=== PATIENT | male | born 1990 | race Caucasian/White ===

== ENCOUNTER 2019-07-04 20:56 | Emergency (ER) | payer MEDICAID ==
[~2019-07-04] VITALS: Ht 188 cm; Wt 95.4 kg
[2019-07-04 21:03] VITALS: BP 132/84
[2019-07-04] MEDS ORDERED: HYDROcodone/APAP 5/325 TABLET ONE (21:23)
[2019-07-04] MEDS ORDERED: HYDROcodone/APAP 5/325 TABLET PO ONE (21:30)
== END 2019-07-04 23:07 | disposition home or self-care (01) ==
LOC: ED 22:51
DX: S80.01XA Contusion of right knee, initial encounter (principal); M25.461 Effusion, right knee; F17.200 Nicotine dependence, unspecified, uncomplicated; W19.XXXA Unspecified fall, initial encounter; Y93.89 Activity, other specified; Y92.488 Other paved roadways as the place of occurrence of the external cause; Y99.8 Other external cause status
CPT/HCPCS: 29505; 99283

== ENCOUNTER 2019-11-11 18:31 | Emergency (ER) | payer MEDICAID ==
[~2019-11-11] VITALS: Ht 188 cm; Wt 95.0 kg
[2019-11-11] MEDS ORDERED: BACITRACIN OINT 500U/GM, 15 GM TP PRN (20:30)
[2019-11-11] MEDS ORDERED: CLINDAMYCIN 150 MG/ML, 6ML IM ONE (20:30)
[2019-11-11] MEDS ORDERED: CLINDAMYCIN 150 MG/ML, 6ML ONE (20:42)
[2019-11-11] MEDS ORDERED: NEOSPORIN OINT. PKT 1 PACKET ONE (21:00)
--- NOTE | 2019-11-11 21:21 | NUR ---
[address] YODER
[2019-11-11 21:39] VITALS: BP 144/91
== END 2019-11-11 21:42 | disposition home or self-care (01) ==
LOC: ED 21:15
DX: S01.81XD Laceration without foreign body of other part of head, subsequent encounter (principal); G89.11 Acute pain due to trauma; F17.200 Nicotine dependence, unspecified, uncomplicated; X58.XXXD Exposure to other specified factors, subsequent encounter
CPT/HCPCS: 71045; 73030; 73110; 96372; 99284; S0077

== ENCOUNTER 2019-12-24 03:25 | Emergency (ER) | payer MEDICAID ==
[~2019-12-24] VITALS: Ht 188 cm; Wt 95.1 kg
--- NOTE | 2019-12-24 03:39 | NUR ---
PT UP TO RESTROOM FOR URINE SAMPLE AT THIS TIME
--- NOTE | 2019-12-24 03:48 | NUR ---
DR RIVERA AT BEDSIDE FOR ASSESSMENT AT THIS TIME
--- NOTE | 2019-12-24 03:55 | NUR ---
URINE WALKED TO LAB
[2019-12-24] MEDS ORDERED: IBUPROFEN 200 MG TABLET PO ONE (04:00)
[2019-12-24] MEDS ORDERED: IBUPROFEN 200 MG TABLET ONE (04:05)
[2019-12-24] MEDS ORDERED: AZITHROMYCIN 250 MG TABLET ONE (04:05)
[2019-12-24] MEDS ORDERED: LIDOCAINE-MPF 1%, 5ML ONE (04:05)
[2019-12-24] MEDS ORDERED: CEFTRIAXONE 250 MG ONE (04:05)
--- NOTE | 2019-12-24 04:09 | NUR ---
PER KATE IN LAB "BARELY ENOUGH URINE TO SEND OUT FOR SCREEN"
--- NOTE | 2019-12-24 04:10 | NUR ---
PT IN US AT THIS TIME
--- NOTE | 2019-12-24 04:15 | NUR ---
PT BACK FROM US AT THIS TIME
[2019-12-24] MEDS ORDERED: AZITHROMYCIN 500 MG TABLET PO ONE (04:30)
[2019-12-24] MEDS ORDERED: CEFTRIAXONE 250 MG IM ONE (04:30)
[2019-12-24 04:43] LABS: MICROSCOPIC INDICATED
[2019-12-24 05:01] VITALS: BP 129/88
== END 2019-12-24 05:07 | disposition home or self-care (01) ==
LOC: ED 04:30
DX: N34.2 Other urethritis (principal); N45.1 Epididymitis; F17.200 Nicotine dependence, unspecified, uncomplicated
CPT/HCPCS: 76870; 81001; 87086; 87491; 87591; 96372; 99284; J0696

== ENCOUNTER 2020-04-26 12:10 | Emergency (ER) | payer MEDICAID ==
[~2020-04-26] VITALS: Ht 188 cm; Wt 102.3 kg
[2020-04-26 12:17] VITALS: BP 155/70
== END 2020-04-26 12:52 | disposition home or self-care (01) ==
LOC: ED 12:46
DX: K08.89 Other specified disorders of teeth and supporting structures (principal)
CPT/HCPCS: 99283

== ENCOUNTER 2020-07-04 20:19 | Emergency (ER) | payer MEDICAID ==
[~2020-07-04] VITALS: Ht 188 cm; Wt 103.1 kg
[2020-07-04 20:23] VITALS: BP 142/90
[2020-07-04] MEDS ORDERED: KETOROLAC 30 MG/1 ML ONE (21:47)
[2020-07-04] MEDS ORDERED: KETOROLAC 30 MG/1 ML IM ONE (22:00)
== END 2020-07-04 22:00 | disposition home or self-care (01) ==
LOC: ED 21:23
DX: S39.012A Strain of muscle, fascia and tendon of lower back, initial encounter (principal); F17.290 Nicotine dependence, other tobacco product, uncomplicated; X58.XXXA Exposure to other specified factors, initial encounter; Y93.89 Activity, other specified; Y92.89 Other specified places as the place of occurrence of the external cause; Y99.8 Other external cause status
CPT/HCPCS: 96372; 99283; J1885; J7512

== ENCOUNTER 2020-08-04 00:55 | Emergency (ER) | payer MEDICAID ==
[~2020-08-04] VITALS: Ht 188 cm; Wt 103.7 kg
[2020-08-04 00:59] VITALS: BP 126/84
[2020-08-04] MEDS ORDERED: ACETAMINOPHEN 500 MG TABLET ONE ×2 (01:11→01:15)
--- NOTE | 2020-08-04 01:22 | NUR ---
Patient given discharge instructions and they have confirmed that they understand the instructions. Patient ambulatory with steady gait.
[2020-08-04] MEDS ORDERED: ACETAMINOPHEN 500 MG TABLET PO ONE (01:30)
== END 2020-08-04 01:23 | disposition home or self-care (01) ==
LOC: ED 01:05
DX: T88.1XXA Other complications following immunization, not elsewhere classified, initial encounter (principal)
CPT/HCPCS: 99282